=== PATIENT | male | born 1970 | race African-American/Black ===

== ENCOUNTER 2022-01-21 14:03 | Emergency (ER) | payer MEDICAID, SELFPAY ==
--- NOTE | ~2022-01-21 | XR_ITS ---
EXAMINATION: XR SACROILIAC JOINTS CLINICAL INFORMATION: Sacroiliac joint pain. COMPARISON: None TECHNIQUE: 3 views of the sacroiliac joints FINDINGS: Bones and soft tissues are normal. No fracture. Alignment is anatomic. Sacroiliac joint spaces are well-maintained without erosions or surrounding sclerosis. A circumscribed opacity overlies the pelvis to the right of midline. XR/XR sacroiliac joint min 3V IMPRESSION: Unremarkable sacroiliac joints. Circumscribed opacity overlying the pelvis is nonspecific, but may represent residual contrast within the urinary bladder. Correlate with recent diagnostic imaging.
[2022-01-21 14:22] VITALS: BP 106/72; BP 113/86; PULSE 58; PULSE 68; RESP 18; TEMP 37.6; O2SAT 96; O2SAT 99; BMI 24.7
[2022-01-21] MEDS: oxyCODONE HCl Immed Release 5 MG TABLET PO (14:51)
[2022-01-21] MEDS: methylPREDNISolone Sod Succ 125 MG/2 ML VIAL IVPUSH (14:52)
--- NOTE | 2022-01-21 15:59 | ED.BACK ---
HPI - Back Pain/Injury General Chief Complaint: Back Pain/Injury Stated Complaint: BACK PAIN Time Seen by Provider: 01/21/22 14:23 Source: patient and EMS Mode of arrival: EMS Limitations: no limitations History of Present Illness HPI Narrative: 51-year-old male with a past medical history of traumatic subarachnoid hemorrhage, TBI, alcohol abuse, cannabis dependent, constipation and hyperlipidemia who is currently at [facility] presenting to the ED via EMS with complaints of sudden onset of back pain that occurred when he got up from the chair after eating lunch prior to arrival at [facility]. Dr. Singh is now at bedside reports that he believes is SI joint just needs to be adjusted which he did. Patient reports mild improvement. He denies any fevers, chills, dizziness, headaches, neck pain/stiffness, trouble swallowing breathing, chest pain or shortness of breath, dyspnea on exertion, orthopnea, palpitations, paresthesias, abdominal pain, flank pain, dysuria, hematuria, abnormal penile discharge, black or bloody stools, urinary bowel incontinence or retention, IV drug use, saddle anesthesias, rashes or any other symptoms complaints or concerns at this time. MD elicited complaint: back pain Onset (ago): minute(s) Timing: constant Severity: moderate Quality: aching Location: lumbar spine Radiation: none Exacerbating factors: movement and walking Relieving factors: none Context: other (when he went to stand up) Associated symptoms: denies other symptoms Work related injury: No Related Data Allergies Allergy/AdvReac Type Severity Reaction Status Date / Time No Known Allergies Allergy Verified 01/21/22 14:22 Review of Systems Review of Systems: Constitutional : No trauma, No Weight loss, No Fever, No Chills, ENT/Mouth : No Hearing loss, No Ear Pain, No Nasal Congestion, No Sinus Pain, No Hoarseness, No sore throat, No Rhinorrhea, No Swallowing Difficulty Cardiovascular : No Chest Pain, No SOB Respiratory : No Cough, No Dyspnea Gastrointestinal : No Nausea, No Vomiting, No Diarrhea, No abdominal Pain, No Hematochezia, No Melena Genitourinary : No Dysuria, No Urinary Frequency, No Hematuria, No Urinary or Bowel Incontinence/retention Musculoskeletal : + Back pain, No neck pain, No joint stiffness, No joint swelling Skin : No Skin Lesions, No rash or signs of infection Neuro : No Weakness, No radiation, No Numbness, No Paresthesias, No headache, no loss of bowel or bladder incontinence, no saddle anesthesia, Focal weakness, No radiation Denies history of IV drug usage. Yes all other systems are reviewed and are negative [facility] Past Medical History Attestation statement: The following information was validated with the patient. Source: old records reviewed and nursing notes reviewed Social History Social History Advance Directives: No Physical Exam Vital Signs: Vital Signs: Last Vital Signs Temp 99.6 F 01/21/22 14:22 Pulse 68 01/21/22 14:22 Resp 18 01/21/22 14:22 BP 113/86 01/21/22 14:22 Pulse Ox 96 01/21/22 14: O2 Del Method 01/21/22 14: BMI result Body Mass Index 24.7 vital signs have been reviewed as normal and appeared to be correct. Blood pressure normal. Heart rate normal. Respiration rate normal. Temperature normal. Oxygen saturation normal. Appearance: Alert. Oriented X3. No acute distress. Head: Normal external exam. Normocephalic. Atraumatic. Eyes: PERRLA. EOMI. Conjunctiva and sclera normal. Eyelids normal. ENT: Pharynx normal. Uvula midline. Moist mucous membranes. No trismus noted. No drooling noted. No muffled voice noted. Neck: Normal inspection. Neck supple. FROM. No adenopathy. Thyroid Normal. No meningeal signs. No neck mass noted. CVS: Normal heart rate and rhythm. Heart sound normal. No murmurs noted. Pulses normal throughout. Respiratory: No respiratory distress. Painless inspiration. Breath sounds normal. No wheezes/rales/rhonchi noted. Chest nontender. No accessory muscle usage noted or decreased air movement noted. Abdomen: Soft and nontender. Bowel sounds normal in all 4 quadrants. No distention noted. No organomegaly noted. No visible injury noted. Back: No CVA tenderness. Full range of motion noted. No obvious deformities, or edema. Mild para-spinal muscular tenderness from lumbar region to coccyx. Full ROM in back and lower extremities. 5/5 strength hip extension/flexion, abduction, adduction. Mild Lumbar pain with hip flexion against resistance. Straight leg raise test negative on right; Straight leg raise test negative on left; Reflexes normal ankle and knee bilaterally; EHL motor strength normal bilaterally. No rashes/lesion/induration/fluctuance or signs infection noted. Skin: Skin warm and dry. Normal skin color. Normal skin turgor. No rashes/lesions/lacerations noted. Extremities: No lower extremity edema. Extremities exhibit normal range of motion. Extremities nontender. Neuro: Oriented X 3. No motor deficit. No sensory deficit. Reflexes normal. Patient has a normal steady gait. Course Course Course Narrative: Pt c likely muscular pain, but could be herniated disc. Neuro exam shows no deficits. Not c/w AAA/epidural abscess/dissection.No high risk Hx (Incont, fever, immunosupp, recent surgery/LP, coag, signif trauma, wt loss, puls mass, hx/o Ca, TB, or IVDU) to warrant MRI/CT today. Not c/w Pyelo/UTI/kidney stone/spinal fx. Not cauda equina syndrome. X-ray of lumbar spine negative for any acute processes it does reveal a nonspecific circumscribed opacity at the pelvis which may represent residual contrast within the urinary bladder correlate recent diagnostic imaging. Therefore I sent these results to Dr. Singh he reports that the patient can be sent back to [facility] and he will take care of the patient. He was given 125 mg of IV Solu-Medrol, 30 mg of IM Toradol, 2 mg of Valium and 5 mg of oxycodone. Patient will be discharged at this time. Medications Administered Discontinued Medications Generic Name Dose Route Start Last Admin Trade Name Abiodunq PRN Reason Stop Dose Admin Diazepam 2 mg 01/21/22 15:38 01/21/22 16:02 Diazepam 2 Mg Tablet PO 01/21/22 15:39 2 mg ONCE ONE Administration Ketorolac Tromethamine 30 mg 01/21/22 15:38 01/21/22 16:02 Ketorolac Tromethamine 30 Mg/Ml Vial IVPUSH 01/21/22 15:39 30 mg ONCE ONE Administration Methylprednisolone Sodium Succinate 125 mg 01/21/22 14:23 01/21/22 14:52 Methylprednisolone Sod Succ 125 Mg/2 Ml Vial IVPUSH 01/21/22 14:24 125 mg ONCE ONE Administration Oxycodone HCl 5 mg 01/21/22 14:23 01/21/22 14:51 Oxycodone Hcl Immed Release 5 Mg Tablet PO 01/21/22 14:24 5 mg ONCE ONE Administration MDM - Back Pain/Injury Medical Records Attestation: I reviewed the patient's medical records. Imaging Data Lumbar spine x-ray: Attestation: I personally reviewed and interpreted this imaging study as follows: Radiologist's impression: FINDINGS: Bones and soft tissues are normal. No fracture. Alignment is anatomic. Sacroiliac joint spaces are well-maintained without erosions or surrounding sclerosis. A circumscribed opacity overlies the pelvis to the right of midline. XR/XR sacroiliac joint min 3V IMPRESSION: Unremarkable sacroiliac joints. ? Circumscribed opacity overlying the pelvis is nonspecific, but may represent residual contrast within the urinary bladder. Correlate with recent diagnostic imaging. Discharge Plan Discharge Clinical Impression: Strain of lumbar region Patient Disposition: Home, Self-Care Instructions: Low Back Strain (ED) Referrals: Benjamin Singh DO [Primary Care Provider] -
[2022-01-21] MEDS: Ketorolac Tromethamine 30 MG/ML VIAL IVPUSH (16:02)
[2022-01-21] MEDS: diazePAM 2 MG TABLET PO (16:02)
[2022-01-21] MEDS: Ketorolac Tromethamine 30 MG/ML VIAL IM (16:09)
== END 2022-01-21 18:48 | disposition home or self-care (01) ==
PROVIDERS: Emergency Provider Emergency Medicine; PCP Hospitalist
DX: S39.012A Strain of muscle, fascia and tendon of lower back, initial encounter (principal); X58.XXXA Exposure to other specified factors, initial encounter; Y93.9 Activity, unspecified; Y92.9 Unspecified place or not applicable; Y99.9 Unspecified external cause status
CPT/HCPCS: 72202; 96372; 96374; 96375; 99284; J1885; J2930

== ENCOUNTER 2023-06-02 11:18 | Outpatient (AMB) | payer MEDICAID, SELFPAY ==
--- NOTE | 2023-06-02 11:26 | MHC.OFFVIS ---
Intake Vital Signs 06/02/23 11:28 Height 5 ft 9 in Weight 185 lb 3.013 oz BMI 27.3 BP 98/76 Blood Pressure Location Lt brachial Position Sitting Pulse 63 Intake Visit Reasons: Colonoscopy screening Intake Note: Yunier presents in the office as a new patient for a colonoscopy screening. CC: No concerns just due for a colonoscopy. Allergies No Known Allergies Allergy (Verified 06/02/23 11:28) Medication List - Last Reconciled 06/02/23 by Chanda Bland PA-C acetaminophen 325 mg PO QID PRN atorvastatin (Lipitor) 10 mg PO DAILY bisacodyl (Dulcolax (bisacodyl)) 5 mg PO BEDTIME docusate sodium 100 mg PO DAILY fluoride (sodium) 1.1% PO folic acid 1 mg PO DAILY olanzapine 20 mg PO BEDTIME propranolol 20 mg PO TID simethicone (Gas Relief (simethicone)) 80 mg PO BEDTIME thiamine HCl (vitamin B1) 50 mg PO DAILY HPI HPI Comments History of Present Illness Details 52-year-old male TBI referred for screening colonoscopy- [facility]- staff accompanies He has no GI, Normal bowel pattern, appetite is good-he does smoke he has a former drinker No respiratory or cardiac issues No nausea, vomiting, hematemesis, hematochezia fever chills [facility] Medical History (Updated 06/02/23 @ 12:02 by Chanda Bland PA-C) TBI (traumatic brain injury) Social History (Updated 06/02/23 @ 11:50 by Chanda Bland PA-C) Household Members Other:: [facility] Alcohol intake: former Tobacco use type: Cigarette Current occupational status: disabled Review of Systems Const Details: All systems reviewed and are All systems reviewed & are unremarkable except as noted in HPI and below Physical Exam Vital Signs: Last Vital Signs Pulse 63 06/02/23 11:28 BP 98/76 06/02/23 11:28 BMI result Body Mass Index 27.3 Const General: cooperative, healthy appearing and comfortable Orientation/consciousness: patient oriented x3 Resp Effort & Inspection: normal respiratory effort and able to speak in complete sentences Auscultation: clear to auscultation bilaterally, no rales, no rhonchi and no wheezes Cardio Rate: regular rate Rhythm: regular rhythm Heart sounds: S1 normal heart sound present and S2 normal heart sound present GI Palpation (GI): Soft to palpation and nontender Auscultation: normal bowel sounds Skin General skin exam: no rashes or lesions noted Neuro General: patient oriented x3 Extrem General: Yes full ROM Psych Appearance: grossly normal and well kempt Speech and movement: Clear speech present Attitude: cooperative Assessment & Plan Assessment & Plan (1) Encounter for screening colonoscopy: Comment: Index screening colonoscopy Discussed procedure, rare risks, need for escorted due to anesthesia prep Code(s): Z12.11 - Encounter for screening for malignant neoplasm of colon Plan: Colonoscopy MG prep (2) TBI (traumatic brain injury): Comment: Discussed with patient advocate procedure, rare risk need for escort-prep Code(s): S06.9XAA - Unspecified intracranial injury with loss of consciousness status unknown, initial encounter Plan Colonoscopy MG prep Orders: Orders Colonoscopy - GI Use Only Today Z12.11 - Encounter for screening for malignant neoplasm of colon Medications: New bisacodyl (Dulcolax (bisacodyl)) Day before procedure @ 12 noon Take 4 tablets by mouth followed by large glass of water 20 mg (4 x 5 mg) PO ONCE 1 day PRN 4 tabs 0RF colonoscopy prep Z12.11 - Encounter for screening for malignant neoplasm of colon polyethylene glycol 3350 (Miralax) Take as directed by mouth the day before your procedure. 238 grams PO ONCE 1 day PRN 238 grams 0RF laxative effect Patient Instructions: Index Colonoscopy MG prep reviewed, literature given Encouraged to call questions or concerns Coding Level of Care Code New Pt Level 3 (66387) Diagnoses Encounter for screening colonoscopy Z12.11 TBI (traumatic brain injury) S06.9XAA Time Spent (min) 20
[2023-06-02 11:28] VITALS: BP 98/76; PULSE 63; BMI 27.3
== END 2023-06-02 12:31 | disposition home or self-care (01) ==
PROVIDERS: PCP Hospitalist; Visit Provider Physician Assistant
DX: Z12.11 Encounter for screening for malignant neoplasm of colon (principal); S06.9XAA Unspecified intracranial injury with loss of consciousness status unknown, initial encounter; Z01.818 Encounter for other preprocedural examination
CPT/HCPCS: 99203

== ENCOUNTER → 2023-06-02 11:18 | Outpatient (BNVA) | payer MEDICAID, SELFPAY | PROVIDERS: PCP Hospitalist; Visit Provider Physician Assistant | DX: Z01.818 Encounter for other preprocedural examination (principal); S06.9XAA Unspecified intracranial injury with loss of consciousness status unknown, initial encounter; X58.XXXA Exposure to other specified factors, initial encounter; Y93.9 Activity, unspecified; Y92.9 Unspecified place or not applicable; Y99.9 Unspecified external cause status; Z79.899 Other long term (current) drug therapy | CPT/HCPCS: 99202 ==

== ENCOUNTER 2023-10-04 06:31 | Day surgery (SDC) | payer MEDICAID, SELFPAY ==
--- NOTE | 2023-10-03 11:49 | HO.ANESPROP2 ---
Documented by User: Carri Cool NP 10/03/23 11:49 HPI - Anesthesia Eval Consult details Narrative: 53yo M for Colonoscopy [facility] resident, hx TBI [facility] Active Problems Active Problems: All Active Problems TBI (traumatic brain injury) (Acute) Encounter for screening colonoscopy (Acute) Past Medical History Medical History (Updated 10/03/23 @ 12:12 by Christina Shipley, RN) Hyperlipidemia TBI (traumatic brain injury) Social History Social History (Updated 06/02/23 @ 11:50 by Chanda Bland PA-C) Household Members Other:: [facility] Alcohol intake: former Patient Tobacco Use Status: Current everyday Tobacco user Tobacco use type: Cigarette Are you DNR?: No Advance Directives: No Advance Directives Information Provided: Yes Current occupational status: disabled Meds Allergies Allergy/AdvReac Type Severity Reaction Status Date / Time No Known Allergies Allergy Verified 06/02/23 11:28 Home Medications ?Medication ?Instructions ?Recorded ?Confirmed ?Last Taken ?Type atorvastatin 10 mg tablet (Lipitor) 10 mg PO DAILY 06/02/23 06/02/23 Unknown History folic acid 1 mg tablet 1 mg PO DAILY 06/02/23 06/02/23 Unknown History olanzapine 20 mg tablet 20 mg PO BEDTIME 06/02/23 06/02/23 Unknown History propranolol 20 mg tablet 20 mg PO TID 06/02/23 06/02/23 Unknown History thiamine HCl (vitamin B1) 100 mg 50 mg PO DAILY 06/02/23 06/02/23 Unknown History tablet Assessment and Plan Assessment Anesthesia Assessment: Chart Reviewed Documented by User: Marilyn Rondon MD 10/04/23 08:23 [facility] Past Medical History Medical History (Updated 10/03/23 @ 12:12 by Christina Shipley RN) Hyperlipidemia TBI (traumatic brain injury) Family History Family history of problems with anesthesia: No Surgical History History of Problems with Anesthesia: No Social History Social History (Updated 06/02/23 @ 11:50 by Chanda Bland PA-C) Household Members Other:: [facility] Alcohol intake: former Patient Tobacco Use Status: Current everyday Tobacco user Tobacco use type: Cigarette Are you DNR?: No Advance Directives: No Advance Directives Information Provided: Yes Current occupational status: disabled Meds Allergies Allergy/AdvReac Type Severity Reaction Status Date / Time No Known Allergies Allergy Verified 06/02/23 11:28 Home Medications ?Medication ?Instructions ?Recorded ?Confirmed ?Last Taken ?Type atorvastatin 10 mg tablet (Lipitor) 10 mg PO DAILY 06/02/23 06/02/23 Unknown History folic acid 1 mg tablet 1 mg PO DAILY 06/02/23 06/02/23 Unknown History olanzapine 20 mg tablet 20 mg PO BEDTIME 06/02/23 06/02/23 Unknown History propranolol 20 mg tablet 20 mg PO TID 06/02/23 06/02/23 Unknown History thiamine HCl (vitamin B1) 100 mg 50 mg PO DAILY 06/02/23 06/02/23 Unknown History tablet Exam Airway Mallampati Class: III TM Dist: >3cm Neck ROM: Full Assessment and Plan Assessment Anesthesia Assessment: Anesthesia Plan Discussed Final Anesthetic Review Family History of Problems with Anesthesia: No History of Problems with Anesthesia: No NPO: Yes ASA Class: III Final Preanesthetic Review: No Changes in Pt Med Stat, Meds/Allgs Chart Reviewed, Consent Obtained/Reviewed and Anes Risks/Benef Reviewed Patient Risk: Intermediate Procedure Risk: Low Anesthetic Plan Anesthetic Plan: TIVA Disposition: Standard PACU
[2023-10-04 06:45] VITALS: BP 128/93; PULSE 88; RESP 20; TEMP 36.1; O2SAT 98; BMI 28.5
[2023-10-04] MEDS: Lactated Ringers 1,000 ML 100 ML IVCONT (07:11)
--- NOTE | 2023-10-04 07:38 | MHC.SHP ---
Pre-Procedural Eval Section A - 24 Hr Update-Section A only Date of Service: 10/04/23 Section B - Complete if H&P > 30 days Chief Complaint: Encounter for screening for malignant neoplasm of Relevant Family History (Specify if Yes): No Relevant Social History: None Present Medications: see Short Stay Collaborative assessment Medical History: Significant History (high chol, TBI) History of Previous Operations: No relevant previous surgery Allergies: Allergies Allergy/AdvReac Type Severity Reaction Status Date / Time No Known Allergies Allergy Verified 06/02/23 11:28 Review of Systems Sugical H&P ROS: Negative: Constitution, Cardiovascular, Respiratory, Neurological, Psychiatric, Hem-Onc, Allergic/Immunologic, Gastrointestinal, Genitourinary, Musculoskeletal, Integumentary, Endocrine and Eyes/Ears/Nose/Throat Exam Surgical H&P Exam: Normal: HEENT, Normal: Heart, Normal: Lungs, Normal: Extremities, Normal: Abdomen and Normal: Skin and Significant Findings: Neurological Exam Comment: poor memory Plan Diagnosis/Plan: Unchanged I have reviewed the history and physical and performed a pertinent physical examination on my patient. No changes have occurred unless specified. Time Spent With Patient Time: Total time managing care of this patient today ____ minutes.
--- NOTE | 2023-10-04 09:04 | HO.OPN-COLON ---
Colonoscopy Operative Note Operative Note Date of Service: 10/04/23 Narrative: Operative Information Procedure Description: Colonoscopy Indication: screening Anesthesia: MAC COLONOSCOPY Instrument: Olympus variable stiffness ADULT scope 190L Colonoscopy Monitoring: Vital signs and clinical assessment, continuous EKG monitoring, Pulse oximetry, Carbon Dioxide monitoring and blood pressure monitoring were done throughout the procedure. Colon withdrawal time was 8 minutes. Procedure: The patient was placed in the left lateral decubitis position and pre-procedure medications were administered. After a digital rectal examination of the ano-rectum, the video colonoscope was inserted into the rectum and advanced through the colon to the cecum/TI. The colonoscope was slowly withdrawn in a retrograde panoramic fashion and the colon mucosa was carefully examined including a retroflexed view of the rectum. Findings and interventions are described below. Procedure Difficulty: moderate Findings: Terminal Ileum-not intubated due to looping Cecum:normal Ascending Colon: normal Transverse Colon - 6-8 mm sessile polyp removed with cold snare Descending Colon:normal Sigmoid Colon: normal Rectum: Retroflexion with small internal hemorrhoids seen, grade I Anorectum - normal Intervention: cold snare Colon preparation: [place] Bowel Preparation Scale Right colon; 2 Transverse colon: 2 Left colon; 2 (0 = Unprepared colon segment with mucosa not seen due to solid stool that cannot be cleared. 1 = Portion of mucosa of the colon segment seen, but other areas of the colon segment not well seen due to staining, residual stool and/or opaque liquid. 2 = Minor amount of residual staining, small fragments of stool and/or opaque liquid, but mucosa of colon segment seen well. 3 = Entire mucosa of colon segment seen well with no residual staining, small fragments of stool or opaque liquid) Impression and Post Procedure Diagnosis: colon polyp internal hemorrhoids Plan: High fiber diet leaflet Avoid straining at stool, epsom salts and sitz bath, anusol supps or cream Repeat Colonoscopy in 5-7 years if adenomatous polyp, 10 yrs if hyperplastic or earlier if clinically indicated Above findings were reviewed with the patient and relevant handouts were provided if indicated.
--- NOTE | 2023-10-04 09:28 | P.CONAN_ITS ---
[facility] Active Problems Active Problems: All Active Problems Encounter for screening colonoscopy (Acute) TBI (traumatic brain injury) (Acute) Past Medical History Medical History (Updated 10/03/23 @ 12:12 by Christina Shipley RN) Hyperlipidemia TBI (traumatic brain injury) Family History Family history of problems with anesthesia: No Surgical History History of Problems with Anesthesia: No Social History Social History (Updated 06/02/23 @ 11:50 by Chanda Bland PA-C) Household Members Other:: [facility] Alcohol intake: former Patient Tobacco Use Status: Current everyday Tobacco user Tobacco use type: Cigarette Current occupational status: disabled Meds Allergies Allergy/AdvReac Type Severity Reaction Status Date / Time No Known Allergies Allergy Verified 06/02/23 11:28 Active Medications: Current Medications Lactated Ringer's (Lr) 1,000 mls @ 100 mls/hr IVCONT .Q10H XIOMARA Last Admin: 10/04/23 07:11 Dose: 100 mls/hr Home Medications ?Medication ?Instructions ?Recorded ?Confirmed ?Last Taken ?Type atorvastatin 10 mg tablet (Lipitor) 10 mg PO DAILY 06/02/23 06/02/23 Unknown History folic acid 1 mg tablet 1 mg PO DAILY 06/02/23 06/02/23 Unknown History olanzapine 20 mg tablet 20 mg PO BEDTIME 06/02/23 06/02/23 Unknown History propranolol 20 mg tablet 20 mg PO TID 06/02/23 06/02/23 Unknown History thiamine HCl (vitamin B1) 100 mg 50 mg PO DAILY 06/02/23 06/02/23 Unknown History tablet Exam Height,Weight and Vital Signs: Height 5 ft 9 in Weight 87.498 kg Last Vital Signs Temp 96.9 F 10/04/23 06:45 Pulse 88 10/04/23 06:45 Resp 20 10/04/23 06:45 BP 128/93 H 10/04/23 06:45 Pulse Ox 98 10/04/23 06:45 O2 Del Method Room Air 10/04/23 06:45 Airway Mallampati Class: III TM Dist: >3cm Neck ROM: Full Assessment and Plan Assessment Anesthesia Assessment: Anesthesia Plan Discussed and Chart Reviewed Final Anesthetic Review Family History of Problems with Anesthesia: No History of Problems with Anesthesia: No NPO: Yes ASA Class: III Final Preanesthetic Review: No Changes in Pt Med Stat, Meds/Allgs Chart Reviewed, Consent Obtained/Reviewed and Anes Risks/Benef Reviewed Patient Risk: Intermediate Procedure Risk: Low Anesthetic Plan Anesthetic Plan: TIVA Disposition: Standard PACU
[2023-10-04 09:47] VITALS: BP 115/82; PULSE 78; RESP 16; TEMP 36.3; O2SAT 98
[2023-10-04 10:02] VITALS: BP 122/94; PULSE 72; RESP 18; TEMP 36.8; O2SAT 97
--- NOTE | 2023-10-04 10:55 | PC.NURSE ---
Patient discharged with staff from [facility]. author called [facility] and gave report to ortega regarding post procedure instructions and f/u for polypectomy.
== END 2023-10-04 10:10 | disposition home or self-care (01) ==
PROVIDERS: PCP Hospitalist; Visit Provider Internal Medicine Gastroenterology
PROC: 0DJD8ZZ Inspection of Lower Intestinal Tract, Via Natural or Artificial Opening Endoscopic (ICD-10-PCS; CPT 45378; principal; 2023-10-04 08:30)
DX: Z12.11 Encounter for screening for malignant neoplasm of colon (principal); K63.5 Polyp of colon; K64.0 First degree hemorrhoids; E78.00 Pure hypercholesterolemia, unspecified; Z87.820 Personal history of traumatic brain injury; Z79.899 Other long term (current) drug therapy; F17.210 Nicotine dependence, cigarettes, uncomplicated
CPT/HCPCS: 45385; 88305; J2704

== ENCOUNTER → 2023-10-04 06:31 | Outpatient (BNV) | payer MEDICAID, SELFPAY | PROVIDERS: PCP Hospitalist; Visit Provider Internal Medicine Gastroenterology | DX: Z12.11 Encounter for screening for malignant neoplasm of colon (principal); K63.5 Polyp of colon; K64.0 First degree hemorrhoids | CPT/HCPCS: 45385 ==